=== PATIENT | male | born 1960 | race Caucasian/White ===

== ENCOUNTER 2024-04-09 07:52 | Outpatient (CLI) | payer OTHER, MEDICAID | END 2024-04-09 07:53 | disposition home or self-care (01) | LOC: ULT 07:52 | PROVIDERS: ATTEND Nurse Practitioner Family | DX: Z13.6 Encounter for screening for cardiovascular disorders (principal); F17.200 Nicotine dependence, unspecified, uncomplicated | CPT/HCPCS: 76775 ==